=== PATIENT | male | born 1960 | race Caucasian/White ===

== ENCOUNTER 2022-01-30 18:04 | Inpatient (IN) | payer OTHER ==
[~2022-01-30] VITALS: Ht 185.4 cm; Wt 81.2 kg
--- NOTE | 2022-01-30 18:39 | NUR ---
pt roomed, is resting comfortably and is connected to monitor- is sinus rhythm.
--- NOTE | 2022-01-30 18:40 | NUR ---
ekg done, handed to
--- NOTE | 2022-01-30 19:36 | NUR ---
Xray at bedside.
--- NOTE | 2022-01-30 19:45 | NUR ---
Pt provided urine sample, sent to lab.
[2022-01-30 19:51] LABS: HEMATOCRIT 40.5 % (36.7-47.1); MEAN CORPUSCULAR HEMOGLOBIN 30.6 uug (23.8-33.4); MEAN CORPUSCULAR VOLUME 91.3 fL (73.0-96.2); PLATELET COUNT (AUTO) 217 K/uL (152-348)
[2022-01-30 19:52] LABS: CARBON DIOXIDE 24 mmol/L (21-32); CHLORIDE 108 mmol/L (98-107); CREATININE 1.1 mg/dL (0.6-1.3); GLUCOSE 199 mg/dL (74-106); POTASSIUM 3.1 mmol/L (3.5-5.1); UREA NITROGEN, BLOOD 22 mg/dL (7-18)
[2022-01-30 20:19] LABS: *AMPHETAMINE, URINE NEGATIVE (NEGATIVE); *CANNABINOID, URINE NEGATIVE (NEGATIVE); *COCCAINE, URINE NEGATIVE (NEGATIVE); *OPIATE, URINE NEGATIVE (NEGATIVE); *PHENCYCLIDINE SCREEN,URINE NEGATIVE (NEGATIVE)
[2022-01-30] MEDS ORDERED: POTASSIUM BICARBONATE/CIT AC 25 MEQ TABLET.EFF PO ONE (20:30)
[2022-01-30] MEDS ORDERED: POTASSIUM BICARBONATE/CIT AC 25 MEQ TABLET.EFF ONE (20:30)
--- NOTE | 2022-01-30 21:49 | NUR ---
Pt out of ER for CT.
[2022-01-30] MEDS ORDERED: METF-440 PO (22:35)
[2022-01-30] MEDS ORDERED: INSU100I40 SQ (22:35)
--- NOTE | 2022-01-30 22:54 | NUR ---
Called [facility] to page Victor Manuel Evans NP.
--- NOTE | 2022-01-30 23:10 | NUR ---
Dr. Cabral on panel call with Victor Manuel Evans NP.
[2022-01-30] MEDS ORDERED: MAGNESIUM HYDROXIDE 30 ML LIQUID UDC PO PRN (23:15)
[2022-01-30] MEDS ORDERED: ONDANSETRON 4 MG/2 ML VIAL IV PRN (23:15)
[2022-01-30] MEDS ORDERED: NITROGLYCERIN 0.4 MG/TAB BOTTLE SL PRN (23:15)
[2022-01-30] MEDS ORDERED: MORPHINE SULFATE 2 MG/1 ML DISP.SYRIN IV PRN (23:15)
[2022-01-30] MEDS ORDERED: ACETAMINOPHEN 325 MG TABLET PO PRN (23:15)
[2022-01-30] MEDS ORDERED: DEXTROSE 50% 50 ML DISP.SYRIN IV PRN (23:30)
--- NOTE | 2022-01-31 00:50 | NUR ---
Report given to Diya LING tele.
--- NOTE | 2022-01-31 01:30 | NUR ---
Admitted 71 y/o male from home with diagnosis of Chest pain. AAOx4. Denies chest pain or SOB. No palpitations noted. IV intact and patent. Able to ambulate. Routine admission care rendered. Oriented to room, BR, TV and call light. Plan of care initiated. Needs assessed and attended to. Call light within easy reach.
[2022-01-31 02:00] VITALS: BP 111/75
[2022-01-31 04:00] VITALS: BP 116/70
[2022-01-31] MEDS: PANTOPRAZOLE SODIUM 40 MG TABLET.DR PO SCH (06:38)
[2022-01-31] MEDS: BLOOD SUGAR DIAGNOSTIC 1 EACH STRIP VI SCH ×4 (06:43→20:23)
--- NOTE | 2022-01-31 07:30 | NUR ---
Awake, alert, oriented x 4. Denies chest pain. Tele SR 75
[2022-01-31 07:32] LABS: HEMATOCRIT 37.7 % (36.7-47.1); MEAN CORPUSCULAR HEMOGLOBIN 30.7 uug (23.8-33.4); MEAN CORPUSCULAR VOLUME 90.1 fL (73.0-96.2); PLATELET COUNT (AUTO) 195 K/uL (152-348)
[2022-01-31 07:49] LABS: CREATININE 1.1 mg/dL (0.6-1.3); MAGNESIUM 1.5 mg/dL (1.8-2.4); PHOSPHOROUS 3.8 mg/dL (2.5-4.9); POTASSIUM 3.9 mmol/L (3.5-5.1)
[2022-01-31] MEDS: ASPIRIN 81 MG TAB.CHEW PO SCH (08:57)
[2022-01-31] MEDS: ENOXAPARIN SODIUM 40 MG/0.4 ML DISP.SYRIN SQ SCH (08:58)
[2022-01-31] MEDS: INSULIN REGULAR, HUMAN 300 UNIT/3 ML VIAL SQ PRN ×4 (08:59→20:25)
[2022-01-31 10:46] VITALS: BP 121/83
[2022-01-31] MEDS ORDERED: ASPI81TA31 PO (11:23)
--- NOTE | 2022-01-31 12:30 | NUR ---
BG 227. Insulin sliding scale given as ordered.
[2022-01-31 15:36] VITALS: BP 115/83
[2022-01-31] MEDS ORDERED: NPH,100V SQ (16:08)
--- NOTE | 2022-01-31 17:45 | NUR ---
With fair appetite. Denies chest pain. No shortness of breath noted. Tele SR 75
[2022-01-31] MEDS ORDERED: GLIP10TA11 PO (18:43)
[2022-01-31 20:39] VITALS: BP 110/76
[2022-02-01 00:45] VITALS: BP 112/67
[2022-02-01 05:00] VITALS: BP 118/76
[2022-02-01] MEDS: PANTOPRAZOLE SODIUM 40 MG TABLET.DR PO SCH (06:13)
[2022-02-01] MEDS: BLOOD SUGAR DIAGNOSTIC 1 EACH STRIP VI SCH ×2 (06:13→11:30)
[2022-02-01] MEDS ORDERED: METOPROLOL TARTRATE 25 MG TABLET PO SCH (09:00)
[2022-02-01] MEDS: ASPIRIN 81 MG TAB.CHEW PO SCH (09:08)
[2022-02-01] MEDS: ENOXAPARIN SODIUM 40 MG/0.4 ML DISP.SYRIN SQ SCH (09:08)
[2022-02-01] MEDS: INSULIN REGULAR, HUMAN 300 UNIT/3 ML VIAL SQ PRN (09:14)
[2022-02-01] MEDS ORDERED: ATOR40TA PO (09:21)
[2022-02-01] MEDS ORDERED: glipiZIDE 10 MG TABLET PO SCH (10:00)
[2022-02-01 12:00] VITALS: BP 118/78
[2022-02-01] MEDS ORDERED: MAGNESIUM OXIDE 400 MG TABLET PO ONE (12:45)
--- NOTE | 2022-02-01 13:00 | NUR ---
Pt is in no acute distress. Discharge instructions given to patient. Prescription given to patient. IV taken out of left AC. Pt refused any vaccinations. 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 Pt was on tele snr. dc tele per timber management professor. Educated pt on new medication metoprolol to monitor his b/p at home prior to taking b/p meds ad monitor himself with any adverse reactions from taking new pills. Pt had no adverse reaction earlier this am with the metoprolol.
[2022-02-01] MEDS ORDERED: ATORVASTATIN 40 MG TABLET PO SCH (21:00)
== END 2022-02-01 13:00 | disposition home or self-care (01) | DRG 201 ==
LOC: ER 18:04 → TELE3 23:00
DX: I47.1 Supraventricular tachycardia (principal); D68.69 Other thrombophilia; E11.65 Type 2 diabetes mellitus with hyperglycemia; Z79.4 Long term (current) use of insulin; Z20.822 Contact with and (suspected) exposure to COVID-19; Z79.84 Long term (current) use of oral hypoglycemic drugs
CPT/HCPCS: 36415; 71045; 83735; 84100; 84443; 84484; 85025; 93005; 93307; A4663; G0378; J1650; J1815